=== PATIENT | male | born 1945 | race Caucasian/White ===

== ENCOUNTER 2017-07-31 09:07 | Inpatient (IN) | payer MEDICARE, BC ==
[2017-07-31 09:34] LABS: CHLORIDE,CL 99 mEq/L (98-106); SODIUM,NA 134 mEq/L (136-145)
[2017-07-31] MEDS ORDERED: Ondansetron 4 MG/2 ML SDV IV PRN (10:42)
[2017-07-31] MEDS ORDERED: Magnesium Hydroxide 400 MG/5 ML Susp 30 ML Cup PO PRN (10:42)
[2017-07-31] MEDS ORDERED: Acetaminophen 325 MG Tab PO PRN (10:42)
[2017-07-31] MEDS ORDERED: Temazepam 15 MG Cap PO PRN (10:42)
[2017-07-31] MEDS ORDERED: Sodium Chloride 0.9% 10 ML Syringe FLUSH PRN (10:42)
[2017-07-31] MEDS ORDERED: Calcium Carbonate 500 MG Tab.Chew PO PRN (10:47)
[2017-07-31] MEDS ORDERED: Ibuprofen 200 MG Tab PO PRN (11:27)
[2017-07-31] MEDS ORDERED: MAG HYDROX PO PRN (11:27)
[2017-07-31] MEDS ORDERED: [UNRECOGNIZED DRUG - OTHER] PO PRN (11:27)
[2017-07-31] MEDS ORDERED: CALCIUM CARB PO PRN (11:27)
[2017-07-31] MEDS ORDERED: SIMETH PO PRN (11:27)
[2017-07-31] MEDS ORDERED: Cyclobenzaprine 10 MG Tab PO PRN (11:27)
[2017-07-31] MEDS: Enoxaparin 30 MG/0.3 ML Syringe SUBCUT SCH (12:17)
[2017-07-31] MEDS: Levofloxacin/Dextrose 5%-Water 500 MG in Premix Bag 1 BAG IV SCH (12:17)
[2017-07-31] MEDS: Nicotine 14 MG/24 Hr Patch TRDERM SCH (12:17)
[2017-07-31] MEDS: metroNIDAZOLE/Normal Saline 500 MG in Premix Bag 1 BAG IV SCH ×2 (13:17→19:59)
[2017-07-31] MEDS ORDERED: Iopamidol 612 MG/ML 100 ML Bottle IVPUSH ONE (13:35)
[2017-08-01] MEDS: metroNIDAZOLE/Normal Saline 500 MG in Premix Bag 1 BAG IV SCH ×3 (04:38→19:52)
[2017-08-01 07:50] LABS: CHLORIDE,CL 104 mEq/L (98-106); SODIUM,NA 141 mEq/L (136-145)
[2017-08-01] MEDS: Nicotine 14 MG/24 Hr Patch TRDERM SCH (08:52)
[2017-08-01] MEDS: Enoxaparin 30 MG/0.3 ML Syringe SUBCUT SCH (11:28)
[2017-08-01] MEDS: Levofloxacin/Dextrose 5%-Water 500 MG in Premix Bag 1 BAG IV SCH (11:31)
--- NOTE | 2017-08-01 17:30 | PCM.PN ---
- General Info Date of Service: 08/01/17 Admission Dx/Problem (Free Text): Diverticulitis Functional Status: Reports: Pain Controlled, Tolerating Diet, Ambulating - Review of Systems General: Reports: Fever (low grade fevers). Denies: Weakness, Fatigue HEENT: Reports: No Symptoms Pulmonary: Reports: No Symptoms Cardiovascular: Reports: No Symptoms Gastrointestinal: Reports: Abdominal Pain. Denies: Nausea, Vomiting Genitourinary: Reports: No Symptoms Musculoskeletal: Reports: No Symptoms Skin: Reports: No Symptoms Neurological: Reports: No Symptoms - Patient Data Vitals - Most Recent: Last Vital Signs Temp 98.2 F 08/01/17 16:00 Pulse 68 08/01/17 16:00 Resp 18 08/01/17 16:00 BP 122/68 08/01/17 16:00 Pulse Ox 95 08/01/17 16:00 Weight - Most Recent: 229 lb 14.4 oz I&O - Last 24 Hours: Intake & Output 08/01/17 08/01/17 08/01/17 06:59 14:59 22:59 Intake Total 100 Balance 100 Lab Results Last 24 Hours: Laboratory Results - last 24 hr 08/01/17 08/01/17 Range/Units 07:30 07:30 WBC 12.5 H (5.0-10.0) 10^3/uL RBC 4.92 (4.50-6.00) 10^6/uL Hgb 15.2 (14.0-18.0) g/dL Hct 44.5 (40.0-54.0) % MCV 90.4 (82.0-94.0) fL MCH 30.9 (27.0-32.0) pg MCHC 34.2 (33.0-38.0) g/dL RDW Coeff of Serge 13.6 (11.0-15.0) % Plt Count 177 (150-400) 10^3/uL Neut % (Auto) 70.5 (35-85) % Lymph % (Auto) 20.7 (10-55) % [place] % (Auto) 7.5 (0-16) % Eos % (Auto) 1.1 (0-5) % Baso % (Auto) 0.2 (0-3) % Neut # (Auto) 8.77 H (1.80-7.00) 10^3/uL Lymph # (Auto) 2.58 (1.00-4.80) 10^3/uL [place] # (Auto) 0.93 H (0.00-0.80) 10^3/uL Eos # (Auto) 0.14 (0.00-0.45) 10^3/uL Baso # (Auto) 0.03 10^3/uL Sodium 141 (136-145) mEq/L Potassium 4.3 (3.5-5.0) mEq/L Chloride 104 (98-106) mEq/L Carbon Dioxide 28 (21-32) mmol/L BUN 13 (7-18) mg/dL Creatinine 1.0 (0.7-1.3) mg/dL Est Cr Clr Drug Dosing 62.43 mL/min Estimated GFR (MDRD) > 60 (>=60) mL/min Glucose 108 H (75-99) mg/dL Calcium 8.6 (8.4-10.1) mg/dL C-Reactive Protein 13.3 H (0.2-0.8) mg/dL Med Orders - Current: Current Medications Acetaminophen (Tylenol) 650 mg PO Q4H PRN PRN Reason: Pain (Mild 1-3)/fever Last Admin: 07/31/17 20:00 Dose: 650 mg Calcium Carbonate/Glycine (Tums) 500 mg PO QID PRN PRN Reason: Dyspepsia Cyclobenzaprine HCl (Flexeril) 10 mg PO DAILY PRN PRN Reason: Pain Enoxaparin Sodium (Lovenox) 30 mg SUBCUT Q24H [facility] Last Admin: 08/01/17 11:28 Dose: 30 mg Levofloxacin/Dextrose 500 mg/ (Premix) 100 mls @ 100 mls/hr IV DAILY@1200 [facility] Last Admin: 08/01/17 11:31 Dose: 100 mls/hr Metronidazole 500 mg/ Premix 100 mls @ 100 mls/hr IV Q8H [facility] Last Admin: 08/01/17 11:27 Dose: 100 mls/hr Ibuprofen (Motrin) 400 mg PO DAILY PRN PRN Reason: pain Magnesium Hydroxide (Milk Of Magnesia) 30 ml PO Q12H PRN PRN Reason: Constipation Nicotine (Habitrol) 14 mg TRDERM DAILY [facility] Last Admin: 08/01/17 08:52 Dose: Not Given Non-Formulary Medication (Calcium Carb/Mag Hydrox/Simeth [Antacid Multi-Sym Tab Chew]) 1 tab PO ASDIRECTED PRN PRN Reason: Indigestion Ondansetron HCl (Zofran) 4 mg IV Q6H PRN PRN Reason: Nausea/Vomiting Sodium Chloride (Saline Flush) 10 ml FLUSH ASDIRECTED PRN PRN Reason: Keep Vein Open Temazepam (Restoril) 15 mg PO BEDTIME PRN PRN Reason: Sleep Discontinued Medications Iopamidol (Isovue-300 (61%)) 100 ml IVPUSH ONETIME ONE Stop: 07/31/17 13:36 Last Admin: 07/31/17 14:13 Dose: 100 ml - Exam General: Alert, Oriented HEENT: Mucous Membr. Moist/[place] Neck: Supple Lungs: Clear to Auscultation, Normal Respiratory Effort Cardiovascular: Regular Rate, Regular Rhythm GI/Abdominal Exam: Normal Bowel Sounds, Soft, Tender (LLQ) Extremities: Normal Inspection, No Pedal Edema Skin: Warm, Dry Neurological: No New Focal Deficit - Problem List & Annotations (1) Diverticulitis SNOMED Code(s): 447753506 Code(s): K57.92 - DVTRCLI OF INTEST, PART UNSP, W/O PERF OR ABSCESS W/O BLEED Status: Acute Priority: High Current Visit: No Qualifiers: Diverticulitis site: large intestine - Problem List Review Problem List Initiated/Reviewed/Updated: Yes - Assessment Assessment:: Diverticulitis - Plan Plan:: Patient admits to pain yet in his LLQ but states is improving. Has been up ambulating and tolerating well. Tolerating regular diet. Had normal bowel movement today. Low grade fevers through the night. WBC today improved to 12.5 , CRP down to 13.3. Will continue with IV Flagyl and Levaquin. Pain meds as needed. Possible discharge in next 24-48 hours.
[2017-08-02] MEDS: metroNIDAZOLE/Normal Saline 500 MG in Premix Bag 1 BAG IV SCH ×3 (04:20→19:34)
[2017-08-02 07:52] LABS: CHLORIDE,CL 103 mEq/L (98-106); SODIUM,NA 140 mEq/L (136-145)
[2017-08-02] MEDS: Nicotine 14 MG/24 Hr Patch TRDERM SCH (08:51)
[2017-08-02] MEDS: Enoxaparin 30 MG/0.3 ML Syringe SUBCUT SCH (11:32)
[2017-08-02] MEDS: Levofloxacin/Dextrose 5%-Water 500 MG in Premix Bag 1 BAG IV SCH (11:34)
--- NOTE | 2017-08-02 12:59 | PCM.PN ---
- General Info Date of Service: 08/02/17 Admission Dx/Problem (Free Text): Diverticulitis Functional Status: Reports: Pain Controlled, Tolerating Diet, Ambulating - Review of Systems General: Denies: Fever, Weakness, Fatigue HEENT: Reports: No Symptoms Pulmonary: Reports: No Symptoms Cardiovascular: Reports: No Symptoms Gastrointestinal: Reports: Abdominal Pain. Denies: Decreased Appetite, Diarrhea , Nausea, Vomiting Genitourinary: Reports: No Symptoms Musculoskeletal: Reports: No Symptoms Skin: Reports: No Symptoms Neurological: Reports: No Symptoms - Patient Data Vitals - Most Recent: Last Vital Signs Temp 98.5 F 08/02/17 08:00 Pulse 68 08/02/17 08:00 Resp 18 08/02/17 08:00 BP 107/75 08/02/17 08:00 Pulse Ox 94 L 08/02/17 08:00 Weight - Most Recent: 229 lb 14.4 oz I&O - Last 24 Hours: Intake & Output 08/01/17 08/02/17 08/02/17 22:59 06:59 14:59 Intake Total 100 100 Balance 100 100 Lab Results Last 24 Hours: Laboratory Results - last 24 hr 08/02/17 08/02/17 Range/Units 07:30 07:30 WBC 10.3 H (5.0-10.0) 10^3/uL RBC 4.86 (4.50-6.00) 10^6/uL Hgb 14.9 (14.0-18.0) g/dL Hct 43.8 (40.0-54.0) % MCV 90.1 (82.0-94.0) fL MCH 30.7 (27.0-32.0) pg MCHC 34.0 (33.0-38.0) g/dL RDW Coeff of Serge 13.4 (11.0-15.0) % Plt Count 205 (150-400) 10^3/uL Neut % (Auto) 63.5 (35-85) % Lymph % (Auto) 26.9 (10-55) % [place] % (Auto) 7.7 (0-16) % Eos % (Auto) 1.7 (0-5) % Baso % (Auto) 0.2 (0-3) % Neut # (Auto) 6.55 (1.80-7.00) 10^3/uL Lymph # (Auto) 2.77 (1.00-4.80) 10^3/uL [place] # (Auto) 0.79 (0.00-0.80) 10^3/uL Eos # (Auto) 0.17 (0.00-0.45) 10^3/uL Baso # (Auto) 0.02 10^3/uL Sodium 140 (136-145) mEq/L Potassium 4.3 (3.5-5.0) mEq/L Chloride 103 (98-106) mEq/L Carbon Dioxide 27 (21-32) mmol/L BUN 13 (7-18) mg/dL Creatinine 1.0 (0.7-1.3) mg/dL Est Cr Clr Drug Dosing 62.43 mL/min Estimated GFR (MDRD) > 60 (>=60) mL/min Glucose 100 H (75-99) mg/dL Calcium 8.8 (8.4-10.1) mg/dL C-Reactive Protein 9.9 H (0.2-0.8) mg/dL Med Orders - Current: Current Medications Acetaminophen (Tylenol) 650 mg PO Q4H PRN PRN Reason: Pain (Mild 1-3)/fever Last Admin: 07/31/17 20:00 Dose: 650 mg Calcium Carbonate/Glycine (Tums) 500 mg PO QID PRN PRN Reason: Dyspepsia Cyclobenzaprine HCl (Flexeril) 10 mg PO DAILY PRN PRN Reason: Pain Enoxaparin Sodium (Lovenox) 30 mg SUBCUT Q24H [facility] Last Admin: 08/02/17 11:32 Dose: 30 mg Levofloxacin/Dextrose 500 mg/ (Premix) 100 mls @ 100 mls/hr IV DAILY@1200 [facility] Last Admin: 08/02/17 11:34 Dose: 100 mls/hr Metronidazole 500 mg/ Premix 100 mls @ 100 mls/hr IV Q8H [facility] Last Admin: 08/02/17 11:31 Dose: 100 mls/hr Ibuprofen (Motrin) 400 mg PO DAILY PRN PRN Reason: pain Magnesium Hydroxide (Milk Of Magnesia) 30 ml PO Q12H PRN PRN Reason: Constipation Nicotine (Habitrol) 14 mg TRDERM DAILY [facility] Last Admin: 08/02/17 08:51 Dose: Not Given Non-Formulary Medication (Calcium Carb/Mag Hydrox/Simeth [Antacid Multi-Sym Tab Chew]) 1 tab PO ASDIRECTED PRN PRN Reason: Indigestion Ondansetron HCl (Zofran) 4 mg IV Q6H PRN PRN Reason: Nausea/Vomiting Sodium Chloride (Saline Flush) 10 ml FLUSH ASDIRECTED PRN PRN Reason: Keep Vein Open Temazepam (Restoril) 15 mg PO BEDTIME PRN PRN Reason: Sleep Discontinued Medications Iopamidol (Isovue-300 (61%)) 100 ml IVPUSH ONETIME ONE Stop: 07/31/17 13:36 Last Admin: 07/31/17 14:13 Dose: 100 ml - Exam General: Alert, Oriented HEENT: Mucous Membr. Moist/[place] Neck: Supple Lungs: Clear to Auscultation, Normal Respiratory Effort Cardiovascular: Regular Rate, Regular Rhythm GI/Abdominal Exam: Normal Bowel Sounds, Soft, Tender (LLQ) Extremities: Normal Inspection, No Pedal Edema Skin: Warm, Dry Neurological: No New Focal Deficit - Problem List & Annotations (1) Diverticulitis SNOMED Code(s): 791869966 Code(s): K57.92 - DVTRCLI OF INTEST, PART UNSP, W/O PERF OR ABSCESS W/O BLEED Status: Acute Priority: High Current Visit: No Qualifiers: Diverticulitis site: large intestine - Problem List Review Problem List Initiated/Reviewed/Updated: Yes - Assessment Assessment:: Diverticulitis - Plan Plan:: Patient admits to pain yet in his LLQ but states is improving. Has been up ambulating and tolerating well. Tolerating regular diet. Had normal bowel movement today. Low grade fevers through the night. WBC today improved to 12.5 , CRP down to 13.3. Will continue with IV Flagyl and Levaquin. Pain meds as needed. Possible discharge in next 24-48 hours. 08-02-2017 Patient doing well. Ambulates frequently. Tolerating meals. Afebrile. Continues to have normal movements. Pain is improving. He relates only has pain now with getting out of bed and with bowel movements and passing flatus. cupola tender helper with exam in LLQ. WBC improving, 10.3. CRP down to 9.9 today Will continue with IV antibiotics. Possible discharge home tomorrow on oral antibiotics.
[2017-08-03] MEDS: metroNIDAZOLE/Normal Saline 500 MG in Premix Bag 1 BAG IV SCH (03:39)
[2017-08-03 07:21] VITALS: BP 100/51
[2017-08-03 07:46] LABS: CHLORIDE,CL 106 mEq/L (98-106); SODIUM,NA 142 mEq/L (136-145)
[2017-08-03] MEDS: Nicotine 14 MG/24 Hr Patch TRDERM SCH (07:59)
--- NOTE | 2017-08-03 11:32 | DISCH ---
HOSPITAL COURSE: This is an elderly gentleman, who had [id number] diverticulitis last Thursday. He was started on IV Flagyl, IV Levaquin, responded nicely at the time of discharge, little bit of tenderness but no rebound. He was having bowel movements. CAT scan report is pending. LABORATORY DATA: Labs here in the hospital, on admission, C-reactive protein was 22, it is down to 6.3. White count was 14.8, down to normal. Panel-8 looked good on the discharge. DISPOSITION: The patient is now discharged home. We will see him back in the clinic on Thursday. DISCHARGE MEDICATIONS: Home medications plus Flagyl 500 t.i.d. for 5 days, Levaquin 500 daily for 7 days. DISCHARGE DIAGNOSIS: ACUTE DIVERTICULITIS. RODERICK /[id number]
== END 2017-08-03 10:13 | disposition home or self-care (01) | DRG 392 ==
LOC: CC.FCMC 09:07 → CC.MS 09:07 → UNDOADMIN 10:33 → CC.MS 10:42
PROVIDERS: ADMIT General Practice; ATTEND General Practice
DX: K57.32 Diverticulitis of large intestine without perforation or abscess without bleeding (principal); E78.5 Hyperlipidemia, unspecified; R35.1 Nocturia; R10.32 Left lower quadrant pain
CPT/HCPCS: 36415; 74177; 80048; 80053; 83735; 84550; 85025; 86140; A9270-GY; J1650; J1956; Q9967

== ENCOUNTER 2024-06-14 10:12 | Inpatient (IN) | payer MEDICARE, OTHER ==
[2024-06-14] MEDS ORDERED: Naloxone 2 MG/2 ML Syringe IVPUSH PRN (10:52)
[2024-06-14 10:59] LABS: BASOPHILS ABSOLUTE AUTO 0.02 10^3/uL (0.00-0.50); BASOPHILS PERCENT AUTO 0.2 % (0-1); EOSINOPHILS ABSOLUTE AUTO 0.14 10^3/uL (0.00-1.50); EOSINOPHILS PERCENT AUTO 1.3 % (0-6); HEMATOCRIT 46.9 % (42.0-52.0); HEMOGLOBIN 15.7 g/dL (14.0-18.0); IMMATURE GRAN PERCENT AUTO 0.9 % (0.0-4.9); LYMPHOCYTES ABSOLUTE AUTO 1.89 10^3/uL (0.60-5.00); LYMPHOCYTES PERCENT AUTO 17.4 % (24-44); MEAN CORPUSCULAR HEMOGLOBIN 31.8 pg (27.0-32.0); MEAN CORPUSCULAR HGB CONC 33.5 g/dL (32.0-36.0); MEAN CORPUSCULAR VOLUME 94.9 fL (83.0-97.0); MONOCYTES ABSOLUTE AUTO 0.36 10^3/uL (0.00-1.50); MONOCYTES PERCENT AUTO 3.3 % (0-10); NEUTROPHILS ABSOLUTE AUTO 8.33 x10^3/uL (1.80-8.00); NEUTROPHILS PERCENT AUTO 76.9 % (41-71); PLATELET COUNT,PLT 229 10^3/uL (150-400); RED BLOOD CELL COUNT 4.94 x10^6/uL (4.50-6.00); WHITE BLOOD CELL COUNT,WBC 10.8 10^3/uL (4.0-11.0)
[2024-06-14] MEDS: fentaNYL 50 MCG/ML SDV IVPUSH ONE (11:06)
[2024-06-14 11:22] LABS: ALBUMIN 3.6 g/dL (3.4-5.0); BILIRUBIN TOTAL 0.8 mg/dL (0.0-1.0); C-REACTIVE PROTEIN 0.88 mg/dL (<=0.50); CALCIUM 9.2 mg/dL (8.4-10.1); CREATININE 1.1 mg/dL (0.7-1.3); EST CRCL DRUG DOSING (CG) 52.68 mL/min; POTASSIUM,K 4.4 mEq/L (3.5-5.0); PROTEIN TOTAL,TP 7.2 g/dL (6.4-8.2)
[2024-06-14] MEDS: Sodium Chloride 0.9% 1,000 ML IV ONE (11:27)
[2024-06-14] MEDS: Bacitracin/Neomycin/Polymyxin B Oint 0.9 GM U/D Packet TOP ONE (12:14)
[2024-06-14] MEDS: Diphtheria,Pertussis(Acell),Tetanus Vaccine 0.5 ML Syringe IM ONE (12:16)
[2024-06-14] MEDS ORDERED: Ondansetron 4 MG/2 ML SDV IV PRN (12:53)
[2024-06-14] MEDS ORDERED: [UNRECOGNIZED DRUG - OTHER] PO PRN (12:53)
[2024-06-14] MEDS ORDERED: MAG HYDROX PO PRN (12:53)
[2024-06-14] MEDS ORDERED: Ondansetron 4 MG Tab.DIS PO PRN (12:53)
[2024-06-14] MEDS ORDERED: CALCIUM CARB PO PRN (12:53)
[2024-06-14] MEDS ORDERED: Sodium Chloride 0.9% 10 ML Syringe FLUSH PRN (12:53)
[2024-06-14] MEDS ORDERED: SIMETH PO PRN (12:53)
[2024-06-14] MEDS ORDERED: Calcium Carbonate 500 MG Tab.Chew PO PRN (15:29)
[2024-06-14] MEDS: Acetaminophen/HYDROcodone 325-5 MG Tab PO PRN (16:39)
[2024-06-14] MEDS: Albuterol 6.7 GM Inhaler INH SCH ×2 (16:39→17:29)
[2024-06-14] MEDS: Tamsulosin 0.4 MG Cap.ER PO SCH (17:39)
[2024-06-14] MEDS: DULoxetine 30 MG Cap PO SCH (19:15)
[2024-06-14] MEDS: Docusate Sodium 100 MG Cap PO SCH (19:15)
[2024-06-14] MEDS: HYDROmorphone 0.5 MG/0.5 ML Syringe IVPUSH SCH (19:16)
[2024-06-14] MEDS ORDERED: fentaNYL 50 MCG/ML SDV IVPUSH SCH (20:00)
[2024-06-15 07:35] LABS: BASOPHILS ABSOLUTE AUTO 0.02 10^3/uL (0.00-0.50); BASOPHILS PERCENT AUTO 0.2 % (0-1); EOSINOPHILS ABSOLUTE AUTO 0.14 10^3/uL (0.00-1.50); EOSINOPHILS PERCENT AUTO 1.2 % (0-6); HEMATOCRIT 42.9 % (42.0-52.0); HEMOGLOBIN 14.2 g/dL (14.0-18.0); IMMATURE GRAN ABSOLUTE AUTO 0.04 10^3/uL (0.00-0.49); IMMATURE GRAN PERCENT AUTO 0.3 % (0.0-4.9); LYMPHOCYTES ABSOLUTE AUTO 1.89 10^3/uL (0.60-5.00); LYMPHOCYTES PERCENT AUTO 16.2 % (24-44); MEAN CORPUSCULAR HEMOGLOBIN 31.7 pg (27.0-32.0); MEAN CORPUSCULAR HGB CONC 33.1 g/dL (32.0-36.0); MEAN CORPUSCULAR VOLUME 95.8 fL (83.0-97.0); MONOCYTES ABSOLUTE AUTO 0.75 10^3/uL (0.00-1.50); MONOCYTES PERCENT AUTO 6.4 % (0-10); NEUTROPHILS ABSOLUTE AUTO 8.82 x10^3/uL (1.80-8.00); NEUTROPHILS PERCENT AUTO 75.7 % (41-71); PLATELET COUNT,PLT 220 10^3/uL (150-400); RED BLOOD CELL COUNT 4.48 x10^6/uL (4.50-6.00); WHITE BLOOD CELL COUNT,WBC 11.7 10^3/uL (4.0-11.0)
[2024-06-15] MEDS: Cholecalciferol (Vitamin D3) 25 MCG Tab PO SCH (07:41)
[2024-06-15] MEDS: Fish Oil/Omega-3 Fatty Acids 1 Gm Cap PO SCH (07:42)
[2024-06-15] MEDS: Enoxaparin 40 MG/0.4 ML Syringe SUBCUT SCH (07:42)
[2024-06-15] MEDS: Magnesium Oxide 400 MG Tab PO SCH (07:42)
[2024-06-15 08:41] LABS: ALBUMIN 3.3 g/dL (3.4-5.0); BILIRUBIN TOTAL 0.9 mg/dL (0.0-1.0); CALCIUM 8.5 mg/dL (8.4-10.1); EST CRCL DRUG DOSING (CG) 57.95 mL/min; POTASSIUM,K 4.3 mEq/L (3.5-5.0); PROTEIN TOTAL,TP 6.6 g/dL (6.4-8.2)
[2024-06-15 10:54] LABS: CORONAVIRUS COVID-19 NAA NEGATIVE (NEGATIVE); INFLUENZA A NAA NEGATIVE (NEGATIVE); INFLUENZA B NAA NEGATIVE (NEGATIVE)
[2024-06-15 17:07] LABS: APPEARANCE,URINE CLEAR (CLEAR); BILIRUBIN,URINE NEGATIVE (NEGATIVE); COLOR,URINE YELLOW (YELLOW); GLUCOSE,URINE NEGATIVE (NEGATIVE); KETONES,URINE NEGATIVE (NEGATIVE); LEUKOCYTE ESTERASE,URINE NEGATIVE (NEGATIVE); NITRITE,URINE NEGATIVE (NEGATIVE); OCCULT BLOOD,URINE TRACE-INTACT (NEGATIVE); PROTEIN,URINE NEGATIVE (NEGATIVE)
[2024-06-15 17:08] LABS: RBC,URINE NOT SEEN /HPF (0-5); WBC,URINE NOT SEEN /HPF (0-5)
[2024-06-15] MEDS: Acetaminophen 325 MG Tab PO PRN (19:52)
[2024-06-16 11:08] LABS: BASOPHILS ABSOLUTE AUTO 0.02 10^3/uL (0.00-0.50); BASOPHILS PERCENT AUTO 0.2 % (0-1); EOSINOPHILS ABSOLUTE AUTO 0.14 10^3/uL (0.00-1.50); EOSINOPHILS PERCENT AUTO 1.2 % (0-6); HEMATOCRIT 44.5 % (42.0-52.0); HEMOGLOBIN 14.8 g/dL (14.0-18.0); IMMATURE GRAN ABSOLUTE AUTO 0.02 10^3/uL (0.00-0.49); IMMATURE GRAN PERCENT AUTO 0.2 % (0.0-4.9); LYMPHOCYTES PERCENT AUTO 14.8 % (24-44); MEAN CORPUSCULAR HGB CONC 33.3 g/dL (32.0-36.0); MEAN CORPUSCULAR VOLUME 96.3 fL (83.0-97.0); MONOCYTES PERCENT AUTO 6.1 % (0-10); NEUTROPHILS ABSOLUTE AUTO 8.92 x10^3/uL (1.80-8.00); NEUTROPHILS PERCENT AUTO 77.5 % (41-71); PLATELET COUNT,PLT 227 10^3/uL (150-400); RED BLOOD CELL COUNT 4.62 x10^6/uL (4.50-6.00); WHITE BLOOD CELL COUNT,WBC 11.5 10^3/uL (4.0-11.0)
[2024-06-16 11:18] LABS: C-REACTIVE PROTEIN 4.25 mg/dL (<=0.50); CALCIUM 8.7 mg/dL (8.4-10.1); CREATININE 1.1 mg/dL (0.7-1.3); EST CRCL DRUG DOSING (CG) 52.68 mL/min; MAGNESIUM 2.1 mg/dL (1.8-2.4); POTASSIUM,K 4.3 mEq/L (3.5-5.0)
[2024-06-16] MEDS: Cyclobenzaprine 10 MG Tab PO PRN (12:10)
[2024-06-17 08:23] VITALS: BP 119/66; PULSE 65
== END 2024-06-17 11:05 | disposition swing bed (61) | DRG 552 ==
LOC: CC.ED 10:12 → CC.MS 12:24 → UNDOADMIN 12:24 → CC.MS 12:40 → UNDOADMIN 12:40 → UNDODISIN 06-17 11:05
PROVIDERS: ADMIT Physician Assistant Medical; ATTEND Nurse Practitioner
DX: S22.020A Wedge compression fracture of second thoracic vertebra, initial encounter for closed fracture (principal); S32.028A Other fracture of second lumbar vertebra, initial encounter for closed fracture; S32.038A Other fracture of third lumbar vertebra, initial encounter for closed fracture; S22.029A Unspecified fracture of second thoracic vertebra, initial encounter for closed fracture; H54.7 Unspecified visual loss; H91.90 Unspecified hearing loss, unspecified ear; F17.210 Nicotine dependence, cigarettes, uncomplicated; J30.9 Allergic rhinitis, unspecified; M19.90 Unspecified osteoarthritis, unspecified site; M81.0 Age-related osteoporosis without current pathological fracture; H26.9 Unspecified cataract; F17.200 Nicotine dependence, unspecified, uncomplicated; Y93.89 Activity, other specified; Y92.039 Unspecified place in apartment as the place of occurrence of the external cause; Z79.51 Long term (current) use of inhaled steroids; Z79.1 Long term (current) use of non-steroidal anti-inflammatories (NSAID); Z90.49 Acquired absence of other specified parts of digestive tract; Z86.19 Personal history of other infectious and parasitic diseases; Z79.899 Other long term (current) drug therapy; W10.9XXA Fall (on) (from) unspecified stairs and steps, initial encounter; Y92.019 Unspecified place in single-family (private) house as the place of occurrence of the external cause
CPT/HCPCS: 0240U; 36415; 70450; 71250; 72125; 72131; 72146; 72192; 73030-LT; 73200-LT; 80048; 80053; 81001; 83605; 83690; 83735; 84484; 85025; 86140; 87428-QW; 90471; 90715; 94640; 96374; 97161-GP; 97530-GP; 99223; 99232; 99233; 99238; 99285-25; A9270-GY; J1650; J3010; J7030

== ENCOUNTER 2024-06-17 11:17 | Inpatient (IN) | payer MEDICARE ==
[2024-06-17] MEDS ORDERED: Sodium Chloride 0.9% 10 ML Syringe FLUSH PRN ×2 (12:27)
[2024-06-17] MEDS ORDERED: Ondansetron 4 MG Tab.DIS PO PRN (12:27)
[2024-06-17] MEDS ORDERED: Calcium Carbonate 500 MG Tab.Chew PO PRN (12:27)
[2024-06-17] MEDS ORDERED: Ondansetron 4 MG/2 ML SDV IV PRN (12:27)
[2024-06-17] MEDS ORDERED: Naloxone 2 MG/2 ML Syringe IVPUSH PRN (12:27)
[2024-06-17] MEDS ORDERED: HYDROmorphone 0.5 MG/0.5 ML Syringe IVPUSH PRN (12:30)
[2024-06-17] MEDS: Cyclobenzaprine 10 MG Tab PO SCH (14:20)
[2024-06-17] MEDS: Albuterol 6.7 GM Inhaler INH SCH (16:02)
[2024-06-17] MEDS: Tamsulosin 0.4 MG Cap.ER PO SCH (18:38)
[2024-06-17] MEDS: Docusate Sodium 100 MG Cap PO SCH (19:44)
[2024-06-17] MEDS: DULoxetine 30 MG Cap PO SCH (19:45)
[2024-06-17] MEDS: Albuterol/Ipratropium 3.0-0.5 MG/3 ML Neb Soln NEB PRN (19:45)
[2024-06-17] MEDS: Acetaminophen 325 MG Tab PO PRN (22:37)
[2024-06-18] MEDS: Acetaminophen/HYDROcodone 325-5 MG Tab PO PRN (01:01)
[2024-06-18] MEDS: Fish Oil/Omega-3 Fatty Acids 1 Gm Cap PO SCH (08:00)
[2024-06-18] MEDS: Cholecalciferol (Vitamin D3) 25 MCG Tab PO SCH (08:00)
[2024-06-18] MEDS: Enoxaparin 40 MG/0.4 ML Syringe SUBCUT SCH (08:01)
[2024-06-18] MEDS: Magnesium Oxide 400 MG Tab PO SCH (08:01)
[2024-06-20] MEDS: traMADol 50 MG Tab PO SCH (19:37)
[2024-06-23 08:09] VITALS: BP 137/54; PULSE 75
== END 2024-06-23 14:30 | disposition home or self-care (01) | DRG 561 ==
LOC: CC.MS 11:17 → UNDOADMIN 11:17 → CC.MS 12:29
PROVIDERS: ADMIT Nurse Practitioner; ATTEND Nurse Practitioner
DX: S22.020D Wedge compression fracture of second thoracic vertebra, subsequent encounter for fracture with routine healing (principal); Z79.899 Other long term (current) drug therapy; Z79.51 Long term (current) use of inhaled steroids; W19.XXXD Unspecified fall, subsequent encounter
CPT/HCPCS: 94640; 97110-GP; 97530-GP; A9270-GY; J1650; J7620-GY